=== PATIENT | female | born 1995 | race American Indian/Alaskan Native ===

== ENCOUNTER 2018-10-14 21:08 | Emergency (ER) | payer MEDICAID ==
--- NOTE | 2018-10-14 21:19 | Emergency Department Report ---
Blank Doc - Documentation Documentation: This is a 23-year-old female that presents with vaginal bleeding and pelvic pain. Stated is about 8 weeks . This initial assessment/diagnostic orders/clinical plan/treatment(s) is/are subject to change based on patient's health status, clinical progression and re- assessment by fellow clinical providers in the ED. Further treatment and workup at subsequent clinical providers discretion. Patient/guardians urged not to elope from the ED as their condition may be serious if not clinically assessed and managed. Initial orders include: 1- Patient sent to [facility] for further evaluation and treatment 2- UA 3- labs 4- US OB
[2018-10-14 22:07] LABS: Basophils % (Auto) 0.9 % (0.0-1.8); Eosinophils # (Auto) 0.1 K/mm3 (0.0-0.4); Eosinophils % (Auto) 2.8 % (0.0-4.3); Hematocrit 37.6 % (30.3-42.9); Hemoglobin 12.4 gm/dl (10.1-14.3); Lymphocytes # (Auto) 1.6 K/mm3 (1.2-5.4); Lymphocytes % (Auto) 36.2 % (13.4-35.0); Mean Corpuscular HGB Conc 33 % (30-34); Mean Corpuscular Volume 82 fl (79-97); Monocytes # (Auto) 0.4 K/mm3 (0.0-0.8); Monocytes % (Auto) 9.3 % (0.0-7.3); Platelet Count 301 K/mm3 (140-440); Red Blood Count 4.56 M/mm3 (3.65-5.03); Red Cell Distribution Width 12.5 % (13.2-15.2)
--- NOTE | 2018-10-14 23:13 | Ultrasound Report ---
PROCEDURE: US OB <= 14 WEEKS FETUS TECHNIQUE: Real-time transabdominal sonography of the uterus, placenta, amniotic fluid, adnexa, and fetus was performed with image documentation. Measurements were obtained to determine age/size. M-mode Doppler was used to document heartbeat. ADDITIONAL GESTATION: None. HISTORY: pelvic pain with vaginal bleeding COMPARISONS: None . FINDINGS: CRL: 30.5 mm, which corresponds to a gestational age of: 9 weeks, 6 days. Yolk Sac: Appropriate for gestational age. . Embryonic Cardiac Activity: 165 bpm . Gestational Sac: Size and shape are appropriate for gestational age Right Ovary: 2.5 x 1.6 x 2.2 cm . Left Ovary: Normal . Estimated delivery date: 3.4 x 1.8 x 3.3 cm . Uterus and adnexa: Normal. IMPRESSION: Single live intrauterine gestation at approximately 9 weeks and 6 days . EDC by US 04/23 . This document is electronically signed by Michele Luther MD., October 14 2018 11:11:27 PM ET
--- NOTE | 2018-10-14 23:28 | Emergency Department Report ---
ED HPI - General Chief complaint: Abdominal Pain Stated complaint: 10 WKS PREG/BLEEDING Time Seen by Provider: 10/14/18 21:18 Source: patient Mode of arrival: Ambulatory Limitations: No Limitations - History of Present Illness Initial comments: 23-year-old female presents to the ED with abdominal cramping and light vaginal bleeding since earlier today. Patient denies passage of clots or tissue. Patient believes she is approximately 8 weeks . Has an appointment with Ashley Flor [facility], but has not yet seen a physician. MD Complaint: abdominal pain, vaginal bleeding -: This evening Severity: mild Quality: cramping Consistency: constant Improves with: none Worsens with: none Associated symptoms: vaginal bleeding, abdominal pain Vaginal bleeding: light :: Yes Number of weeks : 8 Pre- care: followed by OB - Related Data : 2 Para: 0 Ab: 1 Allergies Allergy/AdvReac Type Severity Reaction Status Date / Time No Known Allergies Allergy Unverified 10/14/18 21:12 ED Review of Systems ROS: Stated complaint: 10 WKS PREG/BLEEDING Other details as noted in HPI Comment: All other systems reviewed and negative Gastrointestinal: abdominal pain Genitourinary: other (reports vag bleeding) ED Past Medical Hx - Past Medical History Previous Medical History?: Yes - Surgical History Past Surgical History?: Yes Additional Surgical History: - Social History Smoking Status: Never Smoker Substance Use Type: None, Alcohol ED Physical Exam - General Limitations: No Limitations General appearance: alert, in no apparent distress - Head Head exam: Present: atraumatic, normocephalic - Eye Eye exam: Present: normal appearance - ENT ENT exam: Present: mucous membranes moist - Neck Neck exam: Present: normal inspection - Respiratory Respiratory exam: Present: normal lung sounds bilaterally. Absent: respiratory distress - Cardiovascular Cardiovascular Exam: Present: regular rate, normal rhythm - GI/Abdominal GI/Abdominal exam: Present: soft. Absent: distended, tenderness - Extremities Exam Extremities exam: Present: normal inspection - Neurological Exam Neurological exam: Present: alert, oriented X3 - Psychiatric Psychiatric exam: Present: normal affect, normal mood - Skin Skin exam: Present: warm, dry, intact, normal color ED Course Vital Signs 10/14/18 10/15/18 21:13 01:01 Temperature 98.4 F 98.0 F Pulse Rate 106 H 92 H Respiratory 16 18 Rate Blood Pressure 133/83 Blood Pressure 108/70 [Right] O2 Sat by Pulse 100 100 Oximetry ED Medical Decision Making - Lab Data Result diagrams: 10/14/18 21:46 - Radiology Data Radiology results: report reviewed, image reviewed - Medical Decision Making 23 yo F, 9 weeks , presents to ED with mild suprapubic cramping, light vaginal bleeding. US shows IUP with cardiac activity of 165. UA negative for UTI. Pt instructed to follow up with her [employer] [facility] [facility]. Return precautions given. - Differential Diagnosis threatened AB, complete AB, ectopic Critical care attestation.: If time is entered above; I have spent that time in minutes in the direct care of this critically ill patient, excluding procedure time. ED Disposition Clinical Impression: Threatened miscarriage, 9 weeks gestation of Disposition: TO HOME OR SELFCARE Is pt being admited?: No Condition: Stable Instructions: Threatened Miscarriage (ED) Referrals: PRIMARY [facility] [Referring] - 2-3 Days Time of Disposition: 23:28
[2018-10-15 00:13] LABS: Bilirubin,Urine NEG (Negative); Blood,Urine NEG (Negative); Color,Urine Yellow (Yellow); Mucus,Urine 1+ /HPF; Protein,Urine <15 mg/dL mg/dL (Negative); Urobilinogen,Urine < 2.0 mg/dL (<2.0); WBC,Urine < 1.0 /HPF (0.0-6.0)
[2018-10-15 01:06] VITALS: BP 108/70
== END 2018-10-15 01:05 | disposition home or self-care (01) ==
LOC: ED 21:08
DX: O20.0 Threatened abortion (principal); Z3A.09 9 weeks gestation of pregnancy
CPT/HCPCS: 36415; 76801; 81001; 84702; 85025; 86850; 86900; 86901